=== PATIENT | female | born 1960 | race Hispanic/Latino ===

== ENCOUNTER 2022-06-03 13:31 | Emergency (ER) | payer OTHER, MEDICARE ==
[~2022-06-03] VITALS: Ht 152.4 cm; Wt 60.3 kg
[2022-06-03] MEDS ORDERED: CORTISPORIN-TC10 M1 LEFT EAR (13:56)
== END 2022-06-03 15:04 | disposition home or self-care (01) ==
LOC: FSED 13:55
DX: H60.92 Unspecified otitis externa, left ear (principal); I10 Essential (primary) hypertension; E11.9 Type 2 diabetes mellitus without complications
CPT/HCPCS: 99282

== ENCOUNTER 2023-12-07 12:50 | Emergency (ER) | payer MEDICARE, OTHER ==
[~2023-12-07] VITALS: Ht 152.4 cm; Wt 56.7 kg
[~2023-12-07 12:50] MED LIST: CORTISPORIN-TC10 M1 LEFT EAR
[2023-12-07 13:13] VITALS: PULSE 74; RESP 16; TEMP 98.3; O2SAT 99
[2023-12-07] MEDS ORDERED: METFORMIN HCL500 M1 PO (14:22)
[2023-12-07] MEDS ORDERED: LOSARTAN POTAS100 MG PO (14:22)
== END 2023-12-07 13:30 | disposition left against medical advice (07) ==
LOC: FSED 13:29
DX: Z03.89 Encounter for observation for other suspected diseases and conditions ruled out (principal)